=== PATIENT | male | born 1960 | race Caucasian/White ===

== ENCOUNTER 2017-02-12 08:50 | Day surgery (SDC) | payer OTHER ==
[~2017-02-12] VITALS: Ht 167.6 cm; Wt 75.3 kg
[~2017-02-12 08:50] MED LIST: CYMBALTA60 MG PO; IMDUR120 MG PO; LIPITOR20 MG PO; LITE COAT ASPI325 M1 PO; NORVASC5 MG PO; OXYCODONE HCL10 MG PO; PRILOSEC20 MG PO; ZESTRIL40 MG PO
[2017-02-12] MEDS ORDERED: CYMBALTA60 MG PO (09:08)
[2017-02-17] MEDS ORDERED: VENTOLIN HFA18 GM IH (16:31)
== END 2017-02-12 10:30 | disposition home or self-care (01) ==
LOC: PAIN 08:50 → SDC 09:30 → PAIN 10:30
DX: M47.26 Other spondylosis with radiculopathy, lumbar region (principal); M54.5 Low back pain; G89.29 Other chronic pain; I25.10 Atherosclerotic heart disease of native coronary artery without angina pectoris; I10 Essential (primary) hypertension; E78.5 Hyperlipidemia, unspecified; K21.9 Gastro-esophageal reflux disease without esophagitis; F17.210 Nicotine dependence, cigarettes, uncomplicated; Z86.19 Personal history of other infectious and parasitic diseases; Z79.82 Long term (current) use of aspirin; Z79.891 Long term (current) use of opiate analgesic
CPT/HCPCS: J1030; J2250; J3010; S0020

== ENCOUNTER 2017-02-19 08:36 | Day surgery (SDC) | payer OTHER ==
[~2017-02-19] VITALS: Ht 167.6 cm; Wt 79.8 kg
[~2017-02-19 08:36] MED LIST changes: +VENTOLIN HFA18 GM IH
== END 2017-02-19 10:15 | disposition home or self-care (01) ==
LOC: PAIN 08:36
DX: M47.26 Other spondylosis with radiculopathy, lumbar region (principal); M54.5 Low back pain; G89.29 Other chronic pain; I10 Essential (primary) hypertension; E78.00 Pure hypercholesterolemia, unspecified; J44.9 Chronic obstructive pulmonary disease, unspecified; K21.9 Gastro-esophageal reflux disease without esophagitis; I25.2 Old myocardial infarction; F17.200 Nicotine dependence, unspecified, uncomplicated; Z79.82 Long term (current) use of aspirin; Z79.891 Long term (current) use of opiate analgesic; Z95.5 Presence of coronary angioplasty implant and graft
CPT/HCPCS: J1030; J2250; J3010; S0020

== ENCOUNTER 2017-05-07 09:12 | Day surgery (SDC) | payer OTHER ==
[~2017-05-07] VITALS: Ht 167.6 cm; Wt 75.8 kg
== END 2017-05-07 11:10 | disposition home or self-care (01) ==
LOC: PAIN 09:12 → SDC 13:30
PROC: BR161ZZ Fluoroscopy of Lumbar Facet Joint(s) using Low Osmolar Contrast (ICD-10-PCS; principal; 2017-05-07)
PROC: 3E0T3TZ Introduction of Destructive Agent into Peripheral Nerves and Plexi, Percutaneous Approach (ICD-10-PCS; principal; 2017-05-07)
DX: M47.26 Other spondylosis with radiculopathy, lumbar region (principal); M54.5 Low back pain; G89.29 Other chronic pain; I10 Essential (primary) hypertension; E78.5 Hyperlipidemia, unspecified; K21.9 Gastro-esophageal reflux disease without esophagitis; F41.8 Other specified anxiety disorders; F17.200 Nicotine dependence, unspecified, uncomplicated; Z79.891 Long term (current) use of opiate analgesic; Z79.82 Long term (current) use of aspirin; Z95.5 Presence of coronary angioplasty implant and graft
CPT/HCPCS: J1030; J2250; J3010; S0020

== ENCOUNTER 2017-05-14 07:43 | Day surgery (SDC) | payer OTHER ==
[~2017-05-14] VITALS: Ht 167.6 cm; Wt 75.8 kg
== END 2017-05-14 09:10 | disposition home or self-care (01) ==
LOC: PAIN 07:43 → SDC 08:30 → PAIN 08:30
DX: M47.26 Other spondylosis with radiculopathy, lumbar region (principal); M51.16 Intervertebral disc disorders with radiculopathy, lumbar region; M54.5 Low back pain; G89.29 Other chronic pain; I10 Essential (primary) hypertension; E78.00 Pure hypercholesterolemia, unspecified; F41.8 Other specified anxiety disorders; I25.2 Old myocardial infarction; J44.9 Chronic obstructive pulmonary disease, unspecified; K21.9 Gastro-esophageal reflux disease without esophagitis; Z79.82 Long term (current) use of aspirin; Z79.891 Long term (current) use of opiate analgesic; F17.200 Nicotine dependence, unspecified, uncomplicated
CPT/HCPCS: J1030; J2250; J3010; S0020